=== PATIENT | male | born 1980 | race Caucasian/White ===

== ENCOUNTER 2023-08-22 11:55 | Emergency (ER) | payer OTHER ==
--- NOTE | 2023-08-22 12:19 | ED ---
General Adult HPI - General Stated complaint: ETOH Time Seen by Provider: 08/22/23 12:17 Source: patient, RN notes reviewed Mode of arrival: ambulatory Limitations: no limitations - History of Present Illness Initial comments: 42-year-old male presents emergency Department via EMS from intoxication. Patient is admitted to large amount of alcohol use. Patient states he has no o ther complaints is found laying on the ground. - Related Data Allergies Allergy/AdvReac Type Severity Reaction Status Date / Time No Known Allergies Allergy Verified 08/22/23 12:48 Review of Systems ROS Statement: Those systems with pertinent positive or pertinent negative responses have been documented in the HPI. ROS Other: All systems not noted in ROS Statement are negative. General Exam - General Exam Comments Initial Comments: Visual Physical Exam Vital signs reviewed General: Well-appearing, nontoxic, no acute distress. Head: Normocephalic, atraumatic Eyes: PERRLA, EOMI ENT: Airway patent Chest: Nonlabored breathing Skin: No visual rash, normal skin tone Neuro: Alert and oriented 3 Musculoskeletal: No gross abnormalities Course Vital Signs 08/22/23 12:43 Temperature 98.2 F Pulse Rate 88 Respiratory 20 Rate Blood Pressure 140/98 O2 Sat by Pulse 96 Oximetry Medical Decision Making - Medical Decision Making I completed the quick note portion of this chart signed Rodolfo Puente PA-C Patient left AGAINST MEDICAL ADVICE from the waiting room Disposition Clinical Impression: Alcoholic intoxication Disposition: ADMITTED IP TO THIS HOSP Referrals: Asael Walker MD [Primary Care Provider] - 1-2 days
[2023-08-22 13:10] VITALS: BP 140/98; PULSE 88; RESP 20; TEMP 98.2
== END 2023-08-22 12:53 | disposition other institution (70) ==
LOC: EC 11:55
DX: F10.929 Alcohol use, unspecified with intoxication, unspecified (principal)
CPT/HCPCS: 99285

== ENCOUNTER 2023-12-02 13:57 | Inpatient (IN) | payer OTHER ==
--- NOTE | 2023-12-02 14:18 | ED ---
General Adult HPI - General Source: patient, RN notes reviewed Mode of arrival: ambulatory Limitations: no limitations <Aimee Stuart - Last Filed: 12/02/23 14:17> - History of Present Illness -: hour(s) Severity scale (1-10): 0 Consistency: constant Improves with: none Worsens with: none Treatments Prior to Arrival: none <Ricci Acuña - Last Filed: 12/07/23 20:14> - General Stated complaint: Nausea Time Seen by Provider: 12/02/23 14:17 - History of Present Illness Initial comments: Quick note: 43-year-old male presented to the ER with chief complaint of nausea. Patient states he is detoxing from alcohol. Has a history of seizures with det ox. Last drink was 1 to 2 hours ago. When he drinks heavily he drinks up to half gallon a day. (Aimee Stuart) This patient is 43-year-old man who presents with complaint that he feels he is withdrawing from alcohol. The patient states that he has been drinking daily. Sometimes up to half gallon of hard liquor per day. He states that he has tried to stop for the past few days but he gets very shaky and anxious. He states he has previously had seizures related to stopping alcohol use. Patient states he has had a little bit of vomiting associated. Denies pain. No recent fall or trauma. (Ricci Acuña) - Related Data Home Medications Medication Instructions Recorded Confirmed Atorvastatin [Lipitor] 40 mg PO DIRECTED 12/02/23 12/02/23 DULoxetine HCL [Cymbalta] 60 mg PO DAILY 12/02/23 12/02/23 Mirtazapine 7.5 mg PO HS 12/02/23 12/02/23 lisinopriL [Zestril] 40 mg PO DAILY 12/02/23 12/02/23 Allergies Allergy/AdvReac Type Severity Reaction Status Date / Time No Known Allergies Allergy Verified 12/02/23 16:58 Review of Systems ROS Other: All systems not noted in ROS Statement are negative. <Aimee Stuart - Last Filed: 12/02/23 14:17> ROS Other: All systems not noted in ROS Statement are negative. Constitutional: Denies: fever, chills Eyes: Denies: vision change Respiratory: Denies: cough, dyspnea Cardiovascular: Denies: chest pain, palpitations, edema Gastrointestinal: Reports: nausea, vomiting. Denies: abdominal pain, hematemesis, melena, hematochezia Genitourinary: Denies: dysuria, hematuria Musculoskeletal: Denies: back pain Skin: Denies: rash Neurological: Denies: headache Psychiatric: Reports: anxiety. Denies: suicidal thoughts <IrineoblancaRicci - Last Filed: 12/07/23 20:14> ROS Statement: Those systems with pertinent positive or pertinent negative responses have been documented in the HPI. Past Medical History Past Medical History: No Reported History History of Any Multi-Drug Resistant Organisms: None Reported Additional Past Surgical History / Comment(s): Mastoid. Past Psychological History: No Psychological Hx Reported Smoking Status: Current every day smoker Past Alcohol Use History: Daily, Heavy Past Drug Use History: None Reported <LincolnharikaAimee - Last Filed: 12/02/23 14:17> General Exam <NarcisoAimee - Last Filed: 12/02/23 14:17> General appearance: alert, in no apparent distress Head exam: Present: atraumatic, normocephalic Eye exam: Present: normal appearance. Absent: scleral icterus, conjunctival injection Neck exam: Present: normal inspection Respiratory exam: Present: normal lung sounds bilaterally. Absent: respiratory distress, wheezes, rales, rhonchi, stridor, accessory muscle use Cardiovascular Exam: Present: normal rhythm, tachycardia, normal heart sounds. Absent: systolic murmur, diastolic murmur, rubs, gallop GI/Abdominal exam: Present: soft. Absent: distended, tenderness, guarding, rebound, rigid, mass Extremities exam: Present: normal inspection, normal capillary refill. Absent: pedal edema Back exam: Present: normal inspection. Absent: CVA tenderness (R), CVA tenderness (L) Neurological exam: Present: alert Psychiatric exam: Present: anxious Skin exam: Present: warm, dry, intact, normal color. Absent: rash <ArianneRicci - Last Filed: 12/07/23 20:14> - General Exam Comments Initial Comments: Visual Physical Exam Vital signs reviewed General: Well-appearing, nontoxic, no acute distress. Head: Normocephalic, atraumatic Eyes: PERRLA, EOMI ENT: Airway patent Chest: Nonlabored breathing Skin: No visual rash, normal skin tone Neuro: Alert and oriented 3 Musculoskeletal: No gross abnormalities (Aimee Stuart) Course Vital Signs 12/02/23 12/02/23 12/02/23 14:42 16:45 18:40 Temperature 98.4 F Pulse Rate 120 H 105 H 113 H Respiratory 16 18 18 Rate Blood Pressure 95/58 120/69 122/62 O2 Sat by Pulse 97 98 100 Oximetry 12/02/23 12/02/23 12/02/23 21:27 22:30 23:25 Temperature 102.0 F H 100.2 F H Pulse Rate 122 H 111 H Respiratory 18 18 Rate Blood Pressure 116/78 124/92 O2 Sat by Pulse 95 95 Oximetry 12/03/23 12/03/23 12/03/23 03:11 06:30 06:49 Temperature 98.6 F 100.3 F H Pulse Rate 80 98 Respiratory 18 18 Rate Blood Pressure 115/78 140/90 O2 Sat by Pulse 100 95 Oximetry 12/03/23 12/03/23 12/03/23 07:36 09:17 10:53 Temperature 99.3 F 98.9 F Pulse Rate 101 H 108 H 98 Respiratory 18 18 14 Rate Blood Pressure 139/82 138/93 142/86 O2 Sat by Pulse 96 99 98 Oximetry 12/03/23 12/03/23 12/03/23 11:22 12:08 14:54 Temperature Pulse Rate 105 H 103 H 103 H Respiratory 22 18 18 Rate Blood Pressure 121/73 122/84 138/101 O2 Sat by Pulse 97 96 97 Oximetry 12/03/23 12/03/23 16:00 17:17 Temperature 97.9 F Pulse Rate 98 98 Respiratory 18 18 Rate Blood Pressure 154/101 133/88 O2 Sat by Pulse 98 98 Oximetry Medical Decision Making <Aimee Stuart - Last Filed: 12/02/23 14:17> - Lab Data Result diagrams: 12/06/23 04:13 12/06/23 04:13 <Ricci Acuña - Last Filed: 12/07/23 20:14> - Medical Decision Making I performed the quick note portion of this chart. Electronically signed by Aimee Stuart PA-C (Aimee Stuart) Patient is a 43-year-old man presenting with symptoms of alcohol withdrawal. He has had severe withdrawal in the past. For this reason will be admitted to medically manage Was pt. sent in by a medical professional or institution ([facility], HEAD ESTHETICIAN, urgent care, hospital, or detention...) When possible be specific @ -[No] Did you speak to anyone other than the patient for history (EMS, parent, family, police, friend...)? What history was obtained from this source @ -[No] Did you review nursing and triage notes (agree or disagree)? Why? @ -[I reviewed and agree with nursing and triage notes] Were old charts reviewed (outside hosp., previous admission, EMS record, old EKG, old radiological studies, urgent care reports/EKG's, detention records)? Report findings @ -[No old charts were reviewed] Differential Diagnosis (chest pain, altered mental status, abdominal pain women, abdominal pain men, vaginal bleeding, weakness, fever, dyspnea, syncope, headac he, dizziness, GI bleed, back pain, seizure, CVA, palpatations, mental health, musculoskeletal)? @ -[Differential Mental Health Depression, anxiety, bipolar, psychosis, schizophrenia, borderline personality, situational depression, adjustment disorder, behavioral disorder, brain tumor, malingering, substance abuse, encephalopathy, medication reaction, dementia, hypothyroidism, degenerative neurologic disorder, lupus.... This is not meant to be all-inclusive list EKG interpreted by me (3pts min.). @ -[ X-rays interpreted by me (1pt min.). @ -[None done] CT interpreted by me (1pt min.). @ -[None done] U/S interpreted by me (1pt. min.). @ -[None done] What testing was considered but not performed or refused? (CT, X-rays, U/S, labs)? Why? @ -[None] What meds were considered but not given or refused? Why? @ -[None] Did you discuss the management of the patient with other professionals (professionals i.e. [facility], HEAD ESTHETICIAN, lab, RT, psych nurse, social worker assistant, oxygen tank filler, teacher, executive vice president and chief operating officer, case sealer)? Give summary @ -[Case discussed with admitting physician and treatment recommendations incorporated Was smoking cessation discussed for >3mins.? @ -[No] Was critical care preformed (if so, how long)? @ -[No] Were there social determinants of health that impacted care today? How? (Homelessness, low income, unemployed, alcoholism, drug addiction, transportation, low edu. Level, literacy, decrease access to med. care, prison, rehab)? @ -[No] Was there de-escalation of care discussed even if they declined (Discuss DNR or withdrawal of care, Hospice)? DNR status @ -[No] What co-morbidities impacted this encounter? (DM, HTN, Smoking, COPD, CAD, Cancer, CVA, ARF, Chemo, Hep., AIDS, mental health diagnosis, sleep apnea, morbid obesity)? @ -[None] Was patient admitted / discharged? Hospital course, mention meds given and route, prescriptions, significant lab abnormalities, going to OR and other pertinent info. @ -[hospital course] Undiagnosed new problem with uncertain prognosis? @ -[No] Drug Therapy requiring intensive monitoring for toxicity (Heparin, Nitro, Insuli n, Cardizem)? @ -[No] Were any procedures done? @ -[No] Diagnosis/symptom? @ -[Acute alcohol withdrawal Acute, or Chronic, or Acute on Chronic? @ -[Acute Uncomplicated (without systemic symptoms) or Complicated (systemic symptoms)? @ -[Uncomplicated Side effects of treatment? @ -[No] Exacerbation, Progression, or Severe Exacerbation? @ -[No] Poses a threat to life or bodily function? How? (Chest pain, USA, GA, pneumonia, PE, COPD, DKA, ARF, appy, cholecystitis, CVA, Diverticulitis, Homicidal, Suicidal, threat to staff... and all critical care pts) @ -[Yes there is significant morbidity and mortality associated with the development of DTs, patient will be admitted to prevent onset of DTs (Ricci Acuña) - Lab Data Lab Results 12/02/23 12/02/23 Range/Units 16:45 16:45 WBC 13.3 H (3.8-10.6) k/uL RBC 3.56 L (4.30-5.90) m/uL Hgb 11.4 L (13.0-17.5) gm/dL Hct 33.3 L (39.0-53.0) % MCV 93.6 (80.0-100.0) fL MCH 32.1 (25.0-35.0) pg MCHC 34.3 (31.0-37.0) g/dL RDW 12.7 (11.5-15.5) % Plt Count 262 (150-450) k/uL MPV 8.1 Neutrophils % 89 % Lymphocytes % 5 % Monocytes % 6 % Eosinophils % 0 % Basophils % 0 % Neutrophils # 11.8 H (1.3-7.7) k/uL Lymphocytes # 0.6 L (1.0-4.8) k/uL Monocytes # 0.7 (0-1.0) k/uL Eosinophils # 0.0 (0-0.7) k/uL Basophils # 0.0 (0-0.2) k/uL Sodium 135 L (137-145) mmol/L Potassium 4.7 (3.5-5.1) mmol/L Chloride 107 (98-107) mmol/L Carbon Dioxide 19 L (22-30) mmol/L Anion Gap 9 mmol/L BUN 46 H (9-20) mg/dL Creatinine 2.11 H (0.66-1.25) mg/dL Est GFR (CKD-EPI)AfAm 43 (>60 ml/min/1.73 sqM) Est GFR (CKD-EPI)NonAf 37 (>60 ml/min/1.73 sqM) Glucose 101 H (74-99) mg/dL Calcium 8.5 (8.4-10.2) mg/dL Magnesium 1.4 L (1.6-2.3) mg/dL Total Bilirubin 0.5 (0.2-1.3) mg/dL AST 36 (17-59) U/L ALT 23 (4-49) U/L Alkaline Phosphatase 82 (38-126) U/L Total Protein 6.2 L (6.3-8.2) g/dL Albumin 3.9 (3.5-5.0) g/dL Serum Alcohol 56 mg/dL Disposition <Aimee Stuart - Last Filed: 12/02/23 14:17> Is patient prescribed a controlled substance at d/c from ED?: No <Ricci Acuña - Last Filed: 12/07/23 20:14> Clinical Impression: Alcohol withdrawal syndrome Disposition: ADMITTED IP TO THIS HOSP Condition: Fair
[2023-12-02] MEDS: SODIUM CHLORIDE 0.9% 1,000 ML IV STA (16:48)
[2023-12-02] MEDS: LORazepam 2 MG/ML INJ IV STA ×2 (16:48→20:13)
[2023-12-02] MEDS: THIAMINE 100 MG TAB PO STA (16:50)
[2023-12-02] MEDS: ONDANSETRON 4 MG/2 ML VIAL IVP STA (17:01)
[2023-12-02] MEDS: MAG HYDROX/AL HYDROX/SIMETH 30 ML, HYOSCYAMINE ELIXIR 10 ML, LIDOCAINE VISCOUS 2% 10 ML PO STA ×2 (17:03→20:22)
[2023-12-02 17:22] LABS: ALT 23 U/L (4-49); AST 36 U/L (17-59); African American GFR (CKD) 43 (>60 ml/min/1.73 sqM); Albumin 3.9 g/dL (3.5-5.0); Alcohol 56 mg/dL; Alkaline Phosphatase 82 U/L (38-126); Anion Gap 9 mmol/L; Blood Urea Nitrogen 46 mg/dL (9-20); Calcium 8.5 mg/dL (8.4-10.2); Carbon Dioxide 19 mmol/L (22-30); Chloride 107 mmol/L (98-107); Glucose 101 mg/dL (74-99); Magnesium 1.4 mg/dL (1.6-2.3); Non-African American GFR(CKD) 37 (>60 ml/min/1.73 sqM); Potassium 4.7 mmol/L (3.5-5.1); Sodium 135 mmol/L (137-145); Total Bilirubin 0.5 mg/dL (0.2-1.3); Total Protein 6.2 g/dL (6.3-8.2)
[2023-12-02 17:30] LABS: Basophils % (A) 0 %; Eosinophils % (A) 0 %; HCT 33.3 % (39.0-53.0); HGB 11.4 gm/dL (13.0-17.5); Lymphocytes # (A) 0.6 k/uL (1.0-4.8); Lymphocytes % (A) 5 %; MCH 32.1 pg (25.0-35.0); MCHC 34.3 g/dL (31.0-37.0); MCV 93.6 fL (80.0-100.0); Mean Platelet Volume 8.1; Monocytes # (A) 0.7 k/uL (0-1.0); Monocytes % (A) 6 %; Neutrophils # (A) 11.8 k/uL (1.3-7.7); Neutrophils % (A) 89 %; Platelet Count 262 k/uL (150-450); RBC 3.56 m/uL (4.30-5.90); RDW 12.7 % (11.5-15.5); WBC 13.3 k/uL (3.8-10.6)
[2023-12-02] MEDS: SODIUM CHLORIDE 0.9% 1,000 ML IV ONE (19:00)
[2023-12-02] MEDS: MAGNESIUM SULFATE-D5W PMX 1 GM in DEXTROSE/WATER 1 100ML.BAG IVPB ONE (19:01)
[2023-12-02] MEDS: LORazepam 2 MG/ML INJ IV PRN (19:02)
[2023-12-02] MEDS ORDERED: NALOXONE 0.4 MG/ML 1 ML VIAL IV PRN (20:15)
[2023-12-02] MEDS ORDERED: MAG HYDROX/AL HYDROX/SIMETH 30 ML CUP PO PRN (20:15)
[2023-12-02] MEDS: FAMOTIDINE 20 MG/2 ML VIAL IV STA (20:17)
[2023-12-02] MEDS: SODIUM CHLORIDE 0.9% 1,000 ML IV SCH (20:20)
[2023-12-02] MEDS: FAMOTIDINE 20 MG TAB PO SCH (21:22)
[2023-12-02] MEDS: ACETAMINOPHEN TAB 325 MG TAB PO STA (23:26)
[2023-12-03] MEDS: ONDANSETRON 4 MG/2 ML VIAL IVP PRN (09:38)
[2023-12-03 13:45] LABS: ALT 19 U/L (4-49); AST 31 U/L (17-59); African American GFR (CKD) 53 (>60 ml/min/1.73 sqM); Albumin/Globulin Ratio 1.3; Alkaline Phosphatase 63 U/L (38-126); Anion Gap 4 mmol/L; Blood Urea Nitrogen 35 mg/dL (9-20); Calcium 8.1 mg/dL (8.4-10.2); Carbon Dioxide 21 mmol/L (22-30); Chloride 108 mmol/L (98-107); Globulin 2.3 g/dL; Glucose 126 mg/dL (74-99); Non-African American GFR(CKD) 46 (>60 ml/min/1.73 sqM); Potassium 4.3 mmol/L (3.5-5.1); Sodium 133 mmol/L (137-145); Total Bilirubin 0.3 mg/dL (0.2-1.3); Total Protein 5.3 g/dL (6.3-8.2)
[2023-12-03] MEDS: LORazepam 2 MG/ML INJ IV PRN ×2 (18:12→21:04)
[2023-12-03] MEDS: MIRTAZAPINE 15 MG TAB PO SCH (20:11)
--- NOTE | 2023-12-03 22:48 | HP ---
HISTORY AND PHYSICAL CHIEF COMPLAINT: Acute alcohol intoxication and acute kidney injury. HISTORY OF PRESENT ILLNESS: This is the first known admission of this 43-year-old white male, who came in acutely intoxicated. His BUN was also elevated to 46 and his creatinine 2.11 with a GFR of 37. His magnesium was low too at 1.4. He has been told in the past that he had a "kidney problem." REVIEW OF SYSTEMS: Otherwise unremarkable. He has had no seizures, hematemesis, melena, jaundice, blackouts, etc. Past medical history, family history, personal and social histories are all otherwise unremarkable and noncontributory or unchanged. PHYSICAL EXAMINATION: VITAL SIGNS: Normal. HEAD, EARS, EYES, NOSE, MOUTH, AND THROAT: Normal. CHEST: Clear. CARDIAC: Normal. ABDOMEN: Soft, nontender. EXTREMITIES: Normal. NEUROLOGIC: He is intact. ASSESSMENT: He was admitted to the hospital with diagnoses of: 1. Delirium tremens. 2. Acute kidney injury. 3. Hypomagnesemia. 4. Rule out chronic kidney disease. PLAN: 1. Bed rest. 2. IV fluids. 3. Rehydrate. 4. CIWA protocol. MMODL / IJN: [id number] /
--- NOTE | 2023-12-03 22:57 | PN ---
PROGRESS NOTE CHIEF COMPLAINT: DTs, and renal failure. HISTORY OF PRESENT ILLNESS: This gentleman is doing fairly well. He is still nauseated and still in DTs. PHYSICAL EXAMINATION: VITAL SIGNS: Normal. CHEST: Clear. CARDIAC: Normal. ABDOMEN: Soft, nontender. IMPRESSION: 1. Acute alcohol intoxication. 2. Delirium tremens. 3. Dehydration. 4. Acute kidney injury. PLAN: Continue with IV fluids, CIWA protocol, and repeat laboratory studies. MMODL / PRABHJOTN: [id number] /
[2023-12-03 23:23] LABS: Glucose,Whole Blood 127 mg/dL (70-110)
[2023-12-04] MEDS ORDERED: Magnesium Replacement Protocol 1 EACH MISC MISCELLANE PRN (01:57)
--- NOTE | 2023-12-04 01:58 | P.CNPUL ---
History of Present Illness Consult date: 12/04/23 Requesting physician: Asael Walker Reason for consult: other Chief complaint: Alcohol withdrawal delirium tremens History of present illness: Patient is a 43-year-old white male with past medical history significant for alcoholism, hyperlipidemia, hypertension, and current everyday smoker. Patient presented to the emergency room on 12/02/2023 with acute alcohol intoxication. He was reporting alcohol withdrawal like symptoms. He reportedly drinks 1/2 gallon of liquor per day. Last drink was reportedly 1 to 2 hours before hospital admission. Serum alcohol level was 56 mg/dL. He was admitted originally admitted to the general medical floor with the [facility] protocol. The patient started to acutely withdrawal from alcohol. Reported auditory and visual hallucinations. Patient was restless and agitated. Nurses report that he tried to drink his own urine. He was treated with a total of 12 mg of Ativan, and despite this he was having high CIWA scores. Last reported CIWA sco re was 26. At this point, we were consulted for ICU evaluation. I recommended transfer to the intensive care unit for possible Precedex infusion. Currently, the patient has been moved to room 264. He is now quite calm. He is lethargic. Sonorous. Will wake up and answer questions, but is overall poor historian. Endorses headache. No reported falls or trauma. No reported seizure-like activity. conveyor worker is at bedside. On a 50% Ventimask. No reported aspiration events. No vomiting. No reported hematemesis or GI bleeding. Abdomen is nontender, and does not appear acute. CBC on arrival: WBC count 13.3, hemoglobin 11.4, hematocrit 33.3, platelets 262. Most recent BMP from this m orning: Sodium 133, potassium 4.3, chloride 108, serum bicarb 21, BUN 35, creatinine 1.79, glucose 126. LFTs not elevated. Normal saline infusing at 130 MLS per hour. Sinus tachycardia on bedside monitor. Vital signs are stable. Review of Systems ROS unobtainable: due to mental status Past Medical History Past Medical History: No Reported History History of Any Multi-Drug Resistant Organisms: None Reported Additional Past Surgical History / Comment(s): Mastoid. Past Anesthesia/Blood Transfusion Reactions: No Reported Reaction Past Psychological History: No Psychological Hx Reported Smoking Status: Current every day smoker Past Alcohol Use History: Daily, Heavy Past Drug Use History: None Reported - Past Family History Father Family Medical History: Cancer Medications and Allergies Home Medications Medication Instructions Recorded Confirmed Type Atorvastatin [Lipitor] 40 mg PO DIRECTED 12/02/23 12/02/23 History DULoxetine HCL [Cymbalta] 60 mg PO DAILY 12/02/23 12/02/23 History Mirtazapine 7.5 mg PO HS 12/02/23 12/02/23 History lisinopriL [Zestril] 40 mg PO DAILY 12/02/23 12/02/23 History Allergies Allergy/AdvReac Type Severity Reaction Status Date / Time No Known Allergies Allergy Verified 12/02/23 16:58 Physical Exam Vitals: Vital Signs Temp Pulse Pulse Resp BP BP Pulse Ox 12/04/23 00:50 98 12/03/23 20:00 18 12/03/23 19:24 98.2 F 119 H 18 142/84 96 12/03/23 17:40 98.8 F 124 H 18 114/63 97 12/03/23 17:17 97.9 F 98 18 133/88 98 12/03/23 16:00 98 18 154/101 98 12/03/23 14:54 103 H 18 138/101 97 12/03/23 12:08 103 H 18 122/84 96 12/03/23 11:22 105 H 22 121/73 97 12/03/23 10:53 98 14 142/86 98 12/03/23 09:17 98.9 F 108 H 18 138/93 99 12/03/23 07:36 99.3 F 101 H 18 139/82 96 12/03/23 06:49 98 18 140/90 95 12/03/23 06:30 100.3 F H 12/03/23 03:11 98.6 F 80 18 115/78 100 FiO2 12/04/23 00:50 50 12/03/23 20:00 12/03/23 19:24 12/03/23 17:40 12/03/23 17:17 12/03/23 16:00 12/03/23 14:54 12/03/23 12:08 12/03/23 11:22 12/03/23 10:53 12/03/23 09:17 12/03/23 07:36 12/03/23 06:49 12/03/23 06:30 12/03/23 03:11 Intake and Output 12/03/23 12/03/23 12/04/23 14:59 22:59 06:59 Other: # Voids 0 GENERAL EXAM: Lethargic 43-year-old white male, disheveled, will wake up to verbal stimulation, but quickly falls back asleep.. HEAD: Normocephalic and atraumatic EYES: Normal reaction of pupils, equal size. NOSE: Clear with pink turbinates. THROAT: No erythema or exudates. NECK: No masses, no JVD. CHEST: No chest wall deformity. LUNGS: Equal air entry with no crackles, wheeze, rhonchi or dullness. No conversational dyspnea or accessory muscle use. On a 50% Ventimask CVS: S1 and S2 normal with no audible murmur, regular rhythm. No extra heart sounds ABDOMEN: No hepatosplenomegaly, active bowel sounds, no guarding or rigidity. SPINE: No scoliosis or deformity SKIN: No rashes CENTRAL NERVOUS SYSTEM: No focal deficits, tone is normal in all 4 extremities. EXTREMITIES: There is no peripheral edema, clubbing, or cyanosis. Peripheral pulses are intact. Results - Laboratory Findings CBC and BMP: 12/02/23 16:45 12/03/23 13:12 Abnormal lab findings: Abnormal Labs 12/02/23 12/02/23 12/03/23 16:45 16:45 13:12 WBC 13.3 H RBC 3.56 L Hgb 11.4 L Hct 33.3 L Neutrophils # 11.8 H Lymphocytes # 0.6 L Sodium 135 L 133 L Chloride 108 H Carbon Dioxide 19 L 21 L BUN 46 H 35 H Creatinine 2.11 H 1.79 H Glucose 101 H 126 H POC Glucose (mg/dL) Calcium 8.1 L Magnesium 1.4 L Total Protein 6.2 L 5.3 L Albumin 3.0 L 12/03/23 23:22 WBC RBC Hgb Hct Neutrophils # Lymphocytes # Sodium Chloride Carbon Dioxide BUN Creatinine Glucose POC Glucose (mg/dL) 127 H Calcium Magnesium Total Protein Albumin Assessment and Plan Assessment: Acute alcohol intoxication with impending acute alcohol withdrawal delirium tremens. Patient was intoxicated on arrival with a serum alcohol of 56 mg/dL. He was admitted to the hospital under [facility] protocol. He has received a total of 12 mg of Ativan so far. Despite this was having high CIWA scores and was transferred to the intensive care unit for possible Precedex infusion. Acute hypoxemic respiratory failure, likely secondary to above Severe dehydration Acute injury, likely prerenal and secondary to above Hypomagnesemia, will be replaced History of alcoholism, drinks reportedly 1/2 gallon per day History of hypertension History of hyperlipidemia Current everyday smoker. Plan: Patient was seen and evaluated, transferred to the intensive care unit. Patient had been treated with multiple doses of Ativan while on the general medical floor, despite this was having high CIWA scores. Patient may need Precedex infusion. Continue CIWA protocol Vitamin B1 replacement Continue with IV maintenance fluids. Obtain chest x-ray Seizure precautions Continue safety tech Protonix for GI prophylaxis Heparin for DVT prophylaxis We will continue to follow the patient while in the intensive care unit I have personally seen and examined the patient, performed the documentation and the assessment and plan as written. Number of minutes spent on the visit:20 Time with Patient: Greater than 30
[2023-12-04] MEDS: THIAMINE 100 MG/ML 2 ML VIAL IM STA (02:00)
[2023-12-04 03:50] LABS: African American GFR (CKD) 59 (>60 ml/min/1.73 sqM); Anion Gap 9 mmol/L; Blood Urea Nitrogen 29 mg/dL (9-20); Carbon Dioxide 17 mmol/L (22-30); Chloride 113 mmol/L (98-107); Glucose 98 mg/dL (74-99); Magnesium 1.9 mg/dL (1.6-2.3); Non-African American GFR(CKD) 51 (>60 ml/min/1.73 sqM); Sodium 139 mmol/L (137-145)
[2023-12-04 05:32] LABS: Basophils % (A) 0 %; Eosinophils # (A) 0.1 k/uL (0-0.7); Eosinophils % (A) 1 %; HCT 32.6 % (39.0-53.0); HGB 10.6 gm/dL (13.0-17.5); Lymphocytes # (A) 1.3 k/uL (1.0-4.8); Lymphocytes % (A) 14 %; MCH 31.9 pg (25.0-35.0); MCHC 32.5 g/dL (31.0-37.0); MCV 98.2 fL (80.0-100.0); Mean Platelet Volume 8.2; Monocytes # (A) 0.4 k/uL (0-1.0); Monocytes % (A) 4 %; Neutrophils # (A) 7.5 k/uL (1.3-7.7); Neutrophils % (A) 79 %; Platelet Count 209 k/uL (150-450); RBC 3.32 m/uL (4.30-5.90); RDW 12.7 % (11.5-15.5); WBC 9.5 k/uL (3.8-10.6)
[2023-12-04] MEDS: MAGNESIUM SULFATE-D5W PMX 1 GM in DEXTROSE/WATER 1 100ML.BAG IVPB ONE (05:52)
--- NOTE | 2023-12-04 08:28 | XR ---
EXAMINATION TYPE: XR chest 1V portable DATE OF EXAM: 12/04/2023 1:49 AM CLINICAL INDICATION:Male, 43 years old with history of increased oxygen demands; PH[facility] COMPARISON: None TECHNIQUE: XR chest 1V portable Frontal view of the chest. FINDINGS: Lungs/Pleura: There is no evidence of pleural effusion, focal consolidation, or pneumothorax. Pulmonary vascularity: Unremarkable. Heart/mediastinum: Cardiomediastinal silhouette is unremarkable. Musculoskeletal: No acute osseous pathology. IMPRESSION: No acute cardiopulmonary disease/process.
[2023-12-04] MEDS: HALOPERIDOL LACTATE 5 MG/ML 1 ML VIAL IM STA (09:40)
[2023-12-04] MEDS: HEPARIN SODIUM,PORCINE 5,000 UNIT/ML 1 ML VIAL SQ SCH (09:41)
[2023-12-04] MEDS: PANTOPRAZOLE 40 MG/10 ML VIAL IVP SCH (09:41)
[2023-12-04] MEDS: DULoxetine HCL 60 MG CAPSULE.DR PO SCH (09:41)
[2023-12-04] MEDS: lisinopriL 20 MG TAB PO SCH (09:41)
[2023-12-05 06:25] LABS: Basophils % (A) 1 %; Eosinophils # (A) 0.3 k/uL (0-0.7); Eosinophils % (A) 5 %; HCT 29.6 % (39.0-53.0); HGB 9.7 gm/dL (13.0-17.5); Lymphocytes # (A) 1.4 k/uL (1.0-4.8); Lymphocytes % (A) 23 %; MCHC 32.6 g/dL (31.0-37.0); Mean Platelet Volume 7.8; Monocytes # (A) 0.3 k/uL (0-1.0); Monocytes % (A) 6 %; Neutrophils # (A) 3.7 k/uL (1.3-7.7); Neutrophils % (A) 63 %; Platelet Count 222 k/uL (150-450); RBC 3.02 m/uL (4.30-5.90); RDW 12.3 % (11.5-15.5); WBC 5.9 k/uL (3.8-10.6)
[2023-12-05 06:51] LABS: African American GFR (CKD) 66 (>60 ml/min/1.73 sqM); Anion Gap 4 mmol/L; Blood Urea Nitrogen 29 mg/dL (9-20); Calcium 8.4 mg/dL (8.4-10.2); Carbon Dioxide 22 mmol/L (22-30); Chloride 109 mmol/L (98-107); Glucose 97 mg/dL (74-99); Magnesium 1.7 mg/dL (1.6-2.3); Non-African American GFR(CKD) 57 (>60 ml/min/1.73 sqM); Sodium 135 mmol/L (137-145)
[2023-12-05] MEDS: MAGNESIUM SULFATE-D5W PMX 1 GM in DEXTROSE/WATER 1 100ML.BAG IVPB ONE (07:57)
[2023-12-05] MEDS: THIAMINE 100 MG TAB PO SCH (08:02)
--- NOTE | 2023-12-05 14:36 | P.PN ---
Subjective Progress Note Date: 12/05/23 Principal diagnosis: Acute alcohol withdrawal Patient is a 43-year-old white male with past medical history significant for alcoholism, hyperlipidemia, hypertension, and current everyday smoker. Patient presented to the emergency room on 12/02/2023 with acute alcohol intoxication. He was reporting alcohol withdrawal like symptoms. He reportedly drinks 1/2 gallon of liquor per day. Last drink was reportedly 1 to 2 hours before hospital admission. Serum alcohol level was 56 mg/dL. He was admitted originally admitted to the general medical floor with the CIWA protocol. The patient started to acutely withdrawal from alcohol. Reported auditory and visual hallucinations. Patient was restless and agitated. Nurses report that he tried to drink his own urine. He was treated with a total of 12 mg of Ativan, and despite this he was having high CIWA scores. Last reported CIWA score was 26. At this point, we were consulted for ICU evaluation. I recommended transfer to the intensive care unit for possible Precedex infusion. Currently, the patient has been moved to room 264. He is now quite calm. He is lethargic. Sonorous. Will wake up and answer questions, but is overall poor historian. Endorses headache. No reported falls or trauma. No reported seizu re-like activity. teenage babysitter is at bedside. On a 50% Ventimask. No reported aspiration events. No vomiting. No reported hematemesis or GI bleeding. Abdomen is nontender, and does not appear acute. CBC on arrival: WBC count 13.3, hemoglobin 11.4, hematocrit 33.3, platelets 262. Most recent BMP from this morning: Sodium 133, potassium 4.3, chloride 108, serum bicarb 21, BUN 35, creatinine 1.79, glucose 126. LFTs not elevated. Normal saline infusing at 130 MLS per hour. Sinus tachycardia on bedside monitor. Vital signs are stable. Patient was reevaluated today on 12/05/2023, patient remains in the ICU, seems to be calm today, not in any distress, his alcohol withdrawal is fairly well- controlled. Patient is not requiring much of sedation,WBC is 5.9 hemoglobin 9.7 basic metabolic profile is normal renal profile is improving and creatinine is down to 1.49 from 2.11 on admission chest x-ray that showed no acute cardiopulmonary process for hence I plan to transfer the patient out of the ICU to a regular medical floor Objective - Vital Signs Vital signs: Vital Signs Temp 97.5 F L 12/05/23 08:00 Pulse 67 12/05/23 10:00 Resp 4 L 12/05/23 10:00 BP 140/94 12/05/23 10:00 Pulse Ox 94 L 12/05/23 10:00 FiO2 50 12/04/23 04:00 Intake & Output 12/04/23 12/05/23 12/05/23 18:59 06:59 18:59 Intake Total 520 350 Output Total 2715 007 0294 Balance -915 -450 -1050 Weight 105.2 kg Intake: IV 520 Sodium Chloride 0.9% 1, 520 000 ml @ 130 mls/hr IV . [id number] [facility] Rx#:[id number] Intake, IV Titration 100 Amount Magnesium Sulfate-D5w Pmx 100 1 gm In Dextrose/Water 1 100ml.bag @ 100 mls/hr IVPB ONCE ONE Rx#: [id number] Oral 250 Output: Urine 6440 606 4154 Other: Voiding Method Urinal Urinal Urinal # Voids 1 0 0 - Exam GENERAL EXAM: Revealed 43-year-old white male in no distress, on room air HEAD: Normocephalic and atraumatic EYES: Normal reaction of pupils, equal size. NOSE: Clear with pink turbinates. THROAT: No erythema or exudates. NECK: No masses, no JVD. CHEST: No chest wall deformity. LUNGS: Clear bilaterally no crackles rhonchi or wheezes CVS: S1 and S2 normal with no audible murmur, regular rhythm. No extra heart so unds ABDOMEN: No hepatosplenomegaly, active bowel sounds, no guarding or rigidity. Psychiatric: Normal mood and affect and normal mental status examination SKIN: No rashes CENTRAL NERVOUS SYSTEM: Alert oriented x 3 no gross focal deficit EXTREMITIES: There is no peripheral edema, clubbing, or cyanosis. Peripheral pulses are intact. - Labs CBC & Chem 7: 12/05/23 05:47 12/05/23 05:47 Labs: Abnormal Lab Results - Last 24 Hours (Table) 12/05/23 12/05/23 Range/Units 05:47 05:47 RBC 3.02 L (4.30-5.90) m/uL Hgb 9.7 L (13.0-17.5) gm/dL Hct 29.6 L (39.0-53.0) % Sodium 135 L (137-145) mmol/L Chloride 109 H (98-107) mmol/L BUN 29 H (9-20) mg/dL Creatinine 1.49 H (0.66-1.25) mg/dL Assessment and Plan Assessment: Impression: Acute alcohol intoxication with impending acute alcohol withdrawal delirium tremens. Acute hypoxic respiratory failure secondary to above, resolved Severe dehydration Acute injury, likely prerenal and secondary to above Hypomagnesemia, resolved History of alcoholism, drinks reportedly 1/2 gallon per day History of hypertension History of hyperlipidemia Current everyday smoker. Recommendation: Continue present supportive care measures Continue CIWA protocol Continue GI and DVT prophylaxis Consider transferring the patient out of the ICU to regular medical floor Will continue to follow Time with Patient: Less than 30
[2023-12-05] MEDS: ACETAMINOPHEN TAB 325 MG TAB PO PRN (18:21)
--- NOTE | 2023-12-05 23:12 | PN ---
PROGRESS NOTE DATE OF SERVICE: 12/04/2023 CHIEF COMPLAINT: DTs, acute alcohol intoxication and sedation. HISTORY OF PRESENT ILLNESS: This gentleman was moved to ICU because of his sedation. He became very lethargic. He was in floor with DTs. REVIEW OF SYSTEMS: Unobtainable right now. PHYSICAL EXAMINATION: VITAL SIGNS: Normal. CHEST: Breath sounds are heard bilaterally. CARDIAC: Normal. ABDOMEN: Soft. IMPRESSION: 1. Respiratory depression. 2. Delirium tremens. 3. Acute alcohol intoxication. PLAN: ICU management until he is awake and alert. MMODL / IJN: [id number] /
--- NOTE | 2023-12-05 23:21 | PN ---
PROGRESS NOTE DATE OF SERVICE: 12/05/2023 CHIEF COMPLAINT: DTs. HISTORY OF PRESENT ILLNESS: This gentleman is awake now, but he is still nauseated and somewhat tremulous. PHYSICAL EXAMINATION: VITAL SIGNS: Normal. CHEST: Clear. CARDIAC: Normal. IMPRESSION: Delirium tremens. PLAN: Continue on program and probably home tomorrow. MMODL / IJN: [id number] /
[2023-12-06 09:34] LABS: Basophils # (A) 0.04 X 10*3/uL (0.00-0.10); Basophils % (A) 0.5 %; Eosinophils % (A) 3.9 %; HCT 29.3 % (39.6-50.0); HGB 9.7 g/dL (13.0-17.0); Lymphocytes # (A) 1.93 X 10*3/uL (0.90-5.00); Lymphocytes % (A) 25.3 %; MCH 31.4 pg (27.0-32.0); MCHC 33.1 g/dL (32.0-37.0); MCV 94.8 FL (80.0-97.0); Mean Platelet Volume 10.1 FL (9.5-12.2); Monocytes # (A) 0.73 X 10*3/uL (0.20-1.00); Monocytes % (A) 9.6 %; NRBC Per 100 WBC 0 X 10*3/uL (0.00-0.01); Neutrophils % (A) 60.2 %; Platelet Count 218 X 10*3/uL (140-440); RBC 3.09 X 10*6/uL (4.40-5.60); RDW 12.2 % (11.5-14.5); WBC 7.64 X 10*3/uL (4.50-10.00)
[2023-12-06 10:52] LABS: BUN/Creat Ratio 18.88 Ratio (12.00-20.00); Blood Urea Nitrogen 30.2 mg/dL (9.0-27.0); Calcium 8.3 mg/dL (8.7-10.3); Carbon Dioxide 23.2 mmol/L (21.6-31.8); Chloride 105 mmol/L (96-109); Glucose 101 mg/dL (70-110); Magnesium 1.8 mg/dL (1.5-2.4); Potassium 4.1 mmol/L (3.5-5.5); Sodium 139 mmol/L (135-145)
--- NOTE | 2023-12-06 12:20 | P.PN ---
Subjective Progress Note Date: 12/06/23 Patient is a 43-year-old white male with past medical history significant for alcoholism, hyperlipidemia, hypertension, and current everyday smoker. Patient presented to the emergency room on 12/02/2023 with acute alcohol intoxication. He was reporting alcohol withdrawal like symptoms. He reportedly drinks 1/2 gallon of liquor per day. Last drink was reportedly 1 to 2 hours before hospital admission. Serum alcohol level was 56 mg/dL. He was admitted originally admitted to the general medical floor with the CIWA protocol. The patient started to acutely withdrawal from alcohol. Reported auditory and visual hallucinations. Patient was restless and agitated. Nurses report that he tried to drink his own urine. He was treated with a total of 12 mg of Ativan, and despite this he was having high CIWA scores. Last reported CIWA score was 26. At this point, we were consulted for ICU evaluation. I recommended transfer to the intensive care unit for possible Precedex infusion. Currently, the patient has been moved to room 264. He is now quite calm. He is lethargic. Sonorous. Will wake up and answer questions, but is overall poor historian. Endorses headache. No reported falls or trauma. No reported seizure-like activity. patient sitter is at bedside. On a 50% Ventimask. No re ported aspiration events. No vomiting. No reported hematemesis or GI bleeding. Abdomen is nontender, and does not appear acute. CBC on arrival: WBC count 13.3, hemoglobin 11.4, hematocrit 33.3, platelets 262. Most recent BMP from this morning: Sodium 133, potassium 4.3, chloride 108, serum bicarb 21, BUN 35, creatinine 1.79, glucose 126. LFTs not elevated. Normal saline infusing at 130 MLS per hour. Sinus tachycardia on bedside monitor. Vital signs are stable. Patient was reevaluated today on 12/05/2023, patient remains in the ICU, seems to be calm today, not in any distress, his alcohol withdrawal is fairly well- controlled. Patient is not requiring much of sedation,WBC is 5.9 hemoglobin 9.7 basic metabolic profile is normal renal profile is improving and creatinine is down to 1.49 from 2.11 on admission chest x-ray that showed no acute cardiopulmonary process for hence I plan to transfer the patient out of the ICU to a regular medical floor The patient is seen today December 06, 2023 in follow-up on the regular medical floor. He is awake and alert in no acute distress. He is sitting up in bed. No shortness of breath, cough or congestion. No significant withdrawal sympto ms. He is feeling back to his baseline. He is maintaining good O2 saturation in the 90s on room air. White count 7.6. Hemoglobin 9.7. Platelets 218. Sodium 139. Potassium 4.1. Bicarb 23. BUN 30. Creatinine 1.6. Glucose 101. He remains on the CIWA protocol. Continued on vitamin supplements. Heparin for DVT prophylaxis. Objective - Vital Signs Vital signs: Vital Signs Temp 98 F 12/06/23 07:20 Pulse 73 12/06/23 07:20 Resp 16 12/06/23 07:20 BP 155/94 12/06/23 07:20 Pulse Ox 98 12/06/23 07:20 FiO2 50 12/04/23 04:00 Intake & Output 12/05/23 12/06/23 12/06/23 18:59 06:59 18:59 Intake Total 350 Output Total 1400 Balance -1050 Intake: Intake, IV Titration 100 Amount Magnesium Sulfate-D5w Pmx 100 1 gm In Dextrose/Water 1 100ml.bag @ 100 mls/hr IVPB ONCE ONE Rx#: [id number] Oral 250 Output: Urine 1400 Other: Voiding Method Urinal Toilet Toilet Urinal Urinal # Voids 0 1 - Exam GENERAL EXAM: Alert, calm cooperative 43-year-old male, on room air, comfortable in no apparent distress. HEAD: Normocephalic. EYES: Normal reaction of pupils, equal size. NOSE: Clear with pink turbinates. THROAT: No erythema or exudates. NECK: No masses, no JVD. CHEST: No chest wall deformity. LUNGS: Equal air entry with no crackles, wheeze, rhonchi or dullness. CVS: S1 and S2 normal with no audible murmur, regular rhythm. ABDOMEN: No hepatosplenomegaly, normal bowel sounds, no guarding or rigidity. SPINE: No scoliosis or deformity SKIN: No rashes CENTRAL NERVOUS SYSTEM: No focal deficits, tone is normal in all 4 extremities. EXTREMITIES: There is no peripheral edema. No clubbing, no cyanosis. Peripheral pulses are intact. - Labs CBC & Chem 7: 12/06/23 04:13 12/06/23 04:13 Labs: Abnormal Lab Results - Last 24 Hours (Table) 12/06/23 12/06/23 Range/Units 04:13 04:13 RBC 3.09 L (4.40-5.60) X 10*6/uL Hgb 9.7 L (13.0-17.0) g/dL Hct 29.3 L (39.6-50.0) % BUN 30.2 H (9.0-27.0) mg/dL Creatinine 1.6 H (0.6-1.5) mg/dL Est GFR (CKD-EPI) 54 L (>=60) Calcium 8.3 L (8.7-10.3) mg/dL Assessment and Plan Assessment: Acute alcohol intoxication with impending acute alcohol withdrawal delirium tremens, recovered Acute hypoxic respiratory failure secondary to above, resolved Severe dehydration Acute injury, likely prerenal and secondary to above Hypomagnesemia, resolved History of alcoholism, drinks reportedly 1/2 gallon per day History of hypertension History of hyperlipidemia Current everyday smoker Plan: The patient was seen and evaluated Labs and medications reviewed Stable and on room air Last Ativan required on December 04, 2023 Cleared for discharge from the pulmonary standpoint I have personally seen and examined the patient, performed the documentation and the assessment and plan as written. Number of minutes spent on the visit: 10.
--- NOTE | 2023-12-06 23:57 | PN ---
PROGRESS NOTE DATE OF SERVICE: 12/06/2023 CHIEF COMPLAINT: DTs and acute alcohol intoxication. HISTORY OF PRESENT ILLNESS: This gentleman is doing well. He is stable. He feels like he is largely out of DTs. He feels like he could probably go home, but he is concerned. Tomorrow, he is supposed to be in rehab and he is a little bit worried about going home tonight and falling into the difficulty. PHYSICAL EXAMINATION: VITAL SIGNS: Normal. CHEST: Clear. CARDIAC: Normal. ABDOMEN: Soft, nontender. IMPRESSION: 1. Acute alcohol intoxication. 2. Delirium tremens. 3. Chronic alcoholism. PLAN: Discharge tomorrow to rehab. MMODL / IJN: [id number] /
[2023-12-07 02:13] VITALS: RESP 18
[2023-12-07 07:44] VITALS: BP 136/87; PULSE 66; TEMP 97.6
--- NOTE | 2023-12-09 03:26 | DS ---
DISCHARGE SUMMARY CHIEF COMPLAINT: Acute alcohol intoxication and DTs. HISTORY OF PRESENT ILLNESS AND PHYSICAL EXAMINATION: Details of this man's history and physical can be found in the initial workup. LABORATORY STUDIES: While he was in the hospital, he had laboratory studies, details of which can be found in the laboratory section of his chart. COURSE IN THE HOSPITAL: After admission, he was placed on bedrest, started on intravenous fluids and CIWA protocol. He was intoxicated and went into florid DTs. He stabilized slowly and was doing well and it was felt that he could be discharged on the . He was discharged straight into a rehab program. FINAL DIAGNOSES: 1. Acute alcohol intoxication. 2. Delirium tremens. 3. Acute kidney injury. 4. Chronic alcoholism. OPERATIONS: None. CONSULTATION: None, he is improved. AIDEN / [place]: [id number] /
== END 2023-12-07 10:51 | disposition home or self-care (01) | DRG 775 ==
LOC: EC 13:57 → 5NMEDONC 20:16 → 4SSUR 12-03 16:55 → 2SICU 12-03 23:14 → 5NMEDONC 12-05 14:02
PROVIDERS: ADMIT Family Medicine; ATTEND Family Medicine
PROC: HZ2ZZZZ Detoxification Services for Substance Abuse Treatment (ICD-10-PCS; principal; 2023-12-02)
DX: F10.231 Alcohol dependence with withdrawal delirium (principal); Z71.41 Alcohol abuse counseling and surveillance of alcoholic; N17.9 Acute kidney failure, unspecified; J96.01 Acute respiratory failure with hypoxia; F10.229 Alcohol dependence with intoxication, unspecified; I10 Essential (primary) hypertension; R11.2 Nausea with vomiting, unspecified; E86.0 Dehydration; E83.42 Hypomagnesemia; E78.5 Hyperlipidemia, unspecified; F17.210 Nicotine dependence, cigarettes, uncomplicated; Y90.2 Blood alcohol level of 40-59 mg/100 ml; Z79.899 Other long term (current) drug therapy; R00.0 Tachycardia, unspecified
CPT/HCPCS: 36415; 71045; 80048; 80053; 80320; 83735; 85025; 96361; 96365; 96375; 96376; 99285

== ENCOUNTER 2024-01-28 23:02 | Inpatient (IN) | payer OTHER ==
[2024-01-28] MEDS ORDERED: LORazepam 2 MG/ML INJ IV PRN (23:23)
--- NOTE | 2024-01-28 23:26 | ED ---
Alcohol HPI - General Source: EMS Mode of arrival: EMS Limitations: no limitations <Daily Guillaume - Last Filed: 01/28/24 23:24> <Odin Ware - Last Filed: 01/29/24 04:32> - General Chief Complaint: Alcohol Stated Complaint: ETOH Time Seen by Provider: 01/28/24 23:24 - History of Present Illness Initial Comments: 43-year-old male presenting with chief complaint of nausea vomiting. Patient states that he has a history of binge drinking. He has been drinking over one fifth for about a week. His last drink was earlier today. He admits to nausea and vomiting and states "it feels like I am tingling all over". (Daily Guillaume) Dictation was produced using [employer] dictation software. please excuse any grammatical, word or spelling errors. Chief Complaint: 43-year-old female presents to the emergency department for alcohol withdrawal symptoms History of Present Illness: Patient is a 43-year-old alcoholic male states that he is dependent on alcohol. Drinks about fifth and a half of liquor daily. Patient states that his last drink was earlier this afternoon. Patient wants to quit. States that he started feeling jittery and shaky. Patient reports having had multiple hospital admissions for alcohol withdrawal treatment. Patient denies any abdominal pain. The ROS documented in this emergency department record has been reviewed and confirmed by me. Those systems with pertinent positive or negative responses have been documented in the HPI. All other systems are other negative and/or noncontributory. (Odin Ware) - Related Data Home Medications Medication Instructions Recorded Confirmed Atorvastatin [Lipitor] 40 mg PO DIRECTED 12/02/23 12/02/23 DULoxetine HCL [Cymbalta] 60 mg PO DAILY 12/02/23 12/02/23 Mirtazapine 7.5 mg PO HS 12/02/23 12/02/23 lisinopriL [Zestril] 40 mg PO DAILY 12/02/23 12/02/23 Allergies Allergy/AdvReac Type Severity Reaction Status Date / Time No Known Allergies Allergy Verified 01/28/24 23:18 Review of Systems ROS Other: All systems not noted in ROS Statement are negative. <Daily Guillaume - Last Filed: 01/28/24 23:24> ROS Other: All systems not noted in ROS Statement are negative. <Odin Ware - Last Filed: 01/29/24 04:32> ROS Statement: Those systems with pertinent positive or pertinent negative responses have been documented in the HPI. Past Medical History Past Medical History: Hypertension History of Any Multi-Drug Resistant Organisms: None Reported Additional Past Surgical History / Comment(s): Mastoid. Past Anesthesia/Blood Transfusion Reactions: No Reported Reaction Past Psychological History: No Psychological Hx Reported Smoking Status: Current every day smoker Past Alcohol Use History: Daily, Heavy Past Drug Use History: None Reported - Past Family History Father Family Medical History: Cancer <Daily Guillaume - Last Filed: 01/28/24 23:24> General Exam Limitations: no limitations <Daily Guillaume - Last Filed: 01/28/24 23:24> <Odin Ware - Last Filed: 01/29/24 04:32> - General Exam Comments Initial Comments: Visual Physical Exam Vital signs reviewed General: Well-appearing, nontoxic, no acute distress. Head: Normocephalic, atraumatic Eyes: PERRLA, EOMI ENT: Airway patent Chest: Nonlabored breathing Skin: No visual rash, normal skin tone Neuro: Alert and oriented 3 Musculoskeletal: No gross abnormalities (Daily Guillaume) PHYSICAL EXAM: General Impression: Alert and oriented x3, mildly tremulous HEENT: Normocephalic atraumatic, extra-ocular movements intact, pupils equal and reactive to light bilaterally, mucous membranes moist. Cardiovascular: Heart regular rate and rhythm Chest: Able to complete full sentences, no retractions, no tachypnea Abdomen: abdomen soft, non-tender, non-distended, no organomegaly Musculoskeletal: Pulses present and equal in all extremities, no peripheral edema Motor: no focal deficits noted Neurological: CN II-XII grossly intact, no focal motor or sensory deficits noted Skin: Intact with no visualized rashes Psych: Normal affect and mood (Odin Ware) Course Vital Signs 01/28/24 01/29/24 01/29/24 23:04 00:20 01:17 Temperature 98.2 F Pulse Rate 129 H 100 Respiratory 18 18 19 Rate Blood Pressure 158/99 143/104 138/94 O2 Sat by Pulse 96 96 Oximetry 01/29/24 02:32 Temperature Pulse Rate 94 Respiratory 18 Rate Blood Pressure 141/99 O2 Sat by Pulse 97 Oximetry Medical Decision Making <Daily Guillaume - Last Filed: 01/28/24 23:24> - Lab Data Result diagrams: 01/28/24 23:52 01/28/24 23:52 <JeanieOdin D - Last Filed: 01/29/24 04:32> - Medical Decision Making I performed the quick note portion of this visit, electronically signed Daily Guillaume PA-C (Daily Guillaume) Was pt. sent in by a medical professional or institution (, PA, FLAT KNITTER HELPER, urgent care, hospital, or [facility]...) When possible be specific @ -No Did you speak to anyone other than the patient for history (EMS, parent, family, police, friend...)? What history was obtained from this source @ -No Did you review nursing and triage notes (agree or disagree)? Why? @ -I reviewed and agree with nursing and triage notes Were old charts reviewed (outside hosp., previous admission, EMS record, old EKG, old radiological studies, urgent care reports/EKG's, [facility] records)? Report findings @ -No old charts were reviewed Differential Diagnosis (chest pain, altered mental status, abdominal pain women, abdominal pain men, vaginal bleeding, musculoskeletal, weakness, fever, dyspnea, syncope, headache, dizziness, GI bleed, back pain, seizure, CVA, palpatations, mental health)? @ -Differential Weakness: Hypoglycemia, shock, sepsis, hyponatremia, anemia, infection, NH, ETOH, adverse medicine reaction, overdose, stroke, this is not meant to be an all-inclusive list. EKG interpreted by me (3pts min.). @ -None done X-rays interpreted by me (1pt min.). @ -None done CT interpreted by me (1pt min.). @ -None done U/S interpreted by me (1pt. min.). @ -None done What testing was considered but not performed or refused? (CT, X-rays, U/S, labs)? Why? @ -None What meds were considered but not given or refused? Why? @ -None Did you discuss the management of the patient with other professionals (professionals i.e. , PA, FLAT KNITTER HELPER, lab, RT, psych nurse, social worker masters, wardrobe specialty worker, teacher, police patrol officer, therapeutic case manager)? Give summary @ -Case discussed with hospitalist for admission Was smoking cessation discussed for >3mins.? @ -No Was critical care preformed (if so, how long)? @ -No Were there social determinants of health that impacted care today? How? (Homelessness, low income, unemployed, alcoholism, drug addiction, transportation, low edu. Level, literacy, decrease access to med. care, alf, rehab)? @ -No Was there de-escalation of care discussed even if they declined (Discuss DNR or withdrawal of care, Hospice)? DNR status @ -No What co-morbidities impacted this encounter? (DM, HTN, Smoking, COPD, CAD, Cancer, CVA, ARF, Chemo, Hep., AIDS, mental health diagnosis, sleep apnea, m orbid obesity)? @ -None Was patient admitted / discharged? Hospital course, mention meds given and route, prescriptions, significant lab abnormalities, going to OR and other pertinent info. @ -43-year-old male presents to the emergency department for alcohol withdrawal symptoms. Vital signs upon arrival shows tachycardia f at 129, rest of vital signs within acceptable limits. Patient does have some mild withdrawal symptoms at the bedside. Patient is high risk for EtOH withdrawal. Labs are within acceptable limits. Patient will be admitted for inpatient management of alcohol withdrawal Undiagnosed new problem with uncertain prognosis? @ -No Drug Therapy requiring intensive monitoring for toxicity (Heparin, Nitro, Insulin, Cardizem)? @ -No Were any procedures done? @ -No Diagnosis/symptom? Acute, or Chronic, or Acute on Chronic? Uncomplicated (without systemic symptoms) or Complicated (systemic symptoms)? @ -Alcohol withdrawal Side effects of treatment? @ -No Exacerbation, Progression, or Severe Exacerbation? @ -No Poses a threat to life or bodily function? How? (Chest pain, USA, NH, pneumonia, PE, COPD, DKA, ARF, appy, cholecystitis, CVA, Diverticulitis, Homicidal, Ruff icidal, threat to staff... and all critical care pts) @ -yes (Odin Ware) - Lab Data Lab Results 01/28/24 01/28/24 01/29/24 Range/Units 23:52 23:52 01:06 WBC 10.4 (3.8-10.6) k/uL RBC 4.60 (4.30-5.90) m/uL Hgb 14.3 D (13.0-17.5) gm/dL Hct 41.9 (39.0-53.0) % MCV 91.1 D (80.0-100.0) fL MCH 31.0 (25.0-35.0) pg MCHC 34.1 (31.0-37.0) g/dL RDW 12.6 (11.5-15.5) % Plt Count 375 (150-450) k/uL MPV 8.0 Neutrophils % 75 % Lymphocytes % 17 % Monocytes % 5 % Eosinophils % 0 % Basophils % 1 % Neutrophils # 7.8 H (1.3-7.7) k/uL Lymphocytes # 1.8 (1.0-4.8) k/uL Monocytes # 0.5 (0-1.0) k/uL Eosinophils # 0.0 (0-0.7) k/uL Basophils # 0.1 (0-0.2) k/uL Sodium 134 L (137-145) mmol/L Potassium 5.1 (3.5-5.1) mmol/L Chloride 102 (98-107) mmol/L Carbon Dioxide 22 (22-30) mmol/L Anion Gap 10 mmol/L BUN 55 H (9-20) mg/dL Creatinine 2.26 H (0.66-1.25) mg/dL Est GFR (CKD-EPI)AfAm 40 (>60 ml/min/1.73 sqM) Est GFR (CKD-EPI)NonAf 34 (>60 ml/min/1.73 sqM) Glucose 119 H (74-99) mg/dL Calcium 8.5 (8.4-10.2) mg/dL Total Bilirubin 0.6 (0.2-1.3) mg/dL AST 252 H (17-59) U/L ALT 206 H (4-49) U/L Alkaline Phosphatase 75 (38-126) U/L Total Protein 7.1 (6.3-8.2) g/dL Albumin 4.4 (3.5-5.0) g/dL Amylase 46 (30-110) U/L Lipase 130 (23-300) U/L Serum Alcohol <10 mg/dL Disposition <Daily Guillaume - Last Filed: 01/28/24 23:24> Decision Time: 00:54 <Odin Ware - Last Filed: 01/29/24 04:32> Clinical Impression: Alcohol withdrawal Disposition: ADMITTED IP TO THIS HOSP Condition: Fair Referrals: Asael Walker MD [Primary Care Provider] - 1-2 days
[2024-01-29] MEDS: ONDANSETRON 4 MG/2 ML VIAL IVP STA (00:17)
[2024-01-29] MEDS: SODIUM CHLORIDE 0.9% 1,000 ML IV STA (00:17)
[2024-01-29 00:23] LABS: ALT 206 U/L (4-49); AST 252 U/L (17-59); African American GFR (CKD) 40 (>60 ml/min/1.73 sqM); Albumin 4.4 g/dL (3.5-5.0); Alkaline Phosphatase 75 U/L (38-126); Amylase 46 U/L (30-110); Anion Gap 10 mmol/L; Blood Urea Nitrogen 55 mg/dL (9-20); Calcium 8.5 mg/dL (8.4-10.2); Carbon Dioxide 22 mmol/L (22-30); Chloride 102 mmol/L (98-107); Glucose 119 mg/dL (74-99); Lipase 130 U/L (23-300); Non-African American GFR(CKD) 34 (>60 ml/min/1.73 sqM); Potassium 5.1 mmol/L (3.5-5.1); Sodium 134 mmol/L (137-145); Total Bilirubin 0.6 mg/dL (0.2-1.3); Total Protein 7.1 g/dL (6.3-8.2)
[2024-01-29] MEDS: LORazepam 2 MG/ML INJ IV PRN ×2 (00:25→02:46)
[2024-01-29 00:35] LABS: Basophils # (A) 0.1 k/uL (0-0.2); Basophils % (A) 1 %; Eosinophils % (A) 0 %; HCT 41.9 % (39.0-53.0); Lymphocytes # (A) 1.8 k/uL (1.0-4.8); Lymphocytes % (A) 17 %; MCHC 34.1 g/dL (31.0-37.0); Monocytes # (A) 0.5 k/uL (0-1.0); Monocytes % (A) 5 %; Neutrophils # (A) 7.8 k/uL (1.3-7.7); Neutrophils % (A) 75 %; Platelet Count 375 k/uL (150-450); RDW 12.6 % (11.5-15.5); WBC 10.4 k/uL (3.8-10.6)
[2024-01-29 00:41] LABS: HGB 14.3 gm/dL (13.0-17.5); MCV 91.1 fL (80.0-100.0)
[2024-01-29] MEDS ORDERED: NALOXONE 0.4 MG/ML 1 ML VIAL IV PRN (04:30)
[2024-01-29] MEDS: SODIUM CHLORIDE 0.9% 1,000 ML IV SCH (04:34)
--- NOTE | 2024-01-30 22:40 | HP ---
HISTORY AND PHYSICAL CHIEF COMPLAINT: Acute alcohol intoxication. HISTORY OF PRESENT ILLNESS: This is another admission for this 43-year-old chronic alcoholic. He presented to the emergency room lethargic and going into DTs. REVIEW OF SYSTEMS: He denies any abdominal pain, hematemesis, melena, jaundice, acholic stools, seizures, blackouts, etc. PAST MEDICAL HISTORY, FAMILY HISTORY, AND PERSONAL AND SOCIAL HISTORIES: Are otherwise unremarkable and noncontributory. PHYSICAL EXAMINATION: VITAL SIGNS: Pulse is 100, blood pressure is 145/90. HEENT: Head, ears, eyes, nose, mouth, and throat were normal. There is no icterus. CHEST: Clear. CARDIAC: Normal. ABDOMEN: Soft, nontender. EXTREMITIES: Normal. NEUROLOGIC: He is intact. DIAGNOSES: He is admitted to the hospital with diagnoses: 1. Acute alcohol intoxication. 2. Chronic alcoholism. 3. Delirium tremens. PLAN: 1. Bedrest. 2. IV fluids. 3. Thiamin and CIWA protocol. MMVANNA / PRABHJOTN: [id number] /
--- NOTE | 2024-01-30 23:31 | PN ---
PROGRESS NOTE DATE OF SERVICE: 01/30/2024 CHIEF COMPLAINT: Acute alcohol intoxication with DTs. HISTORY OF PRESENT ILLNESS: This gentleman is doing well. He is still a bit shaky. He is making arrangements to go to rehab, which may even be today or tomorrow. PHYSICAL EXAMINATION: GENERAL : He is somewhat tremulous. VITAL SIGNS are normal. CHEST: Clear. CARDIAC: Exam is normal. IMPRESSION: 1. Acute alcohol intoxication. 2. DTs. 3. Chronic alcoholism. 4. Elevated liver function studies (AST 252 and ALT 206), and renal failure (BUN 55 and creatinine 2.26). PLAN: Release to rehab when he bed is available. MMODL / IJN: [id number] /
[2024-02-01 08:33] VITALS: BP 126/88; PULSE 85; RESP 16; TEMP 97.7
--- NOTE | 2024-02-01 22:43 | PN ---
PROGRESS NOTE DATE OF SERVICE: 01/31/2024 CHIEF COMPLAINT: Acute alcohol intoxication, alcoholism, and DTs. HISTORY OF PRESENT ILLNESS: This gentleman is doing well. He is out of DTs. Apparently, the rehab center will be picking him up tomorrow. PHYSICAL EXAMINATION: CHEST: Clear. CARDIAC: Normal. VITAL SIGNS: Normal and he is out of DTs. IMPRESSION: 1. Acute alcohol intoxication. 2. DTs. 3. Chronic alcoholism. PLAN: Discharge to rehab tomorrow. MMODL / IJN: [id number] /
--- NOTE | 2024-02-02 06:55 | DS ---
DISCHARGE SUMMARY CHIEF COMPLAINT: Acute alcohol intoxication. HISTORY OF PRESENT ILLNESS AND PHYSICAL EXAMINATION: Details of this man's history and physical can be found in the initial workup. LABORATORY STUDIES: While he is in the hospital, he had laboratory studies, details of which can be found in the laboratory section of his chart. COURSE IN HOSPITAL: After admission, he was placed on bedrest, started intravenous fluids, and CIWA protocol. He did go into DTs. He eventually stabilized and was improving. He made arrangements to go straight to a rehab center after discharge and they picked him up on the afternoon on the . FINAL DIAGNOSIS: 1. Acute alcohol intoxication. 2. Chronic alcoholism. 3. DTs. OPERATIONS: None. CONSULTATION: None. He is improved. MMODL / IJN: [id number] /
--- NOTE | 2024-02-04 09:51 | CDI ---
Documentation Clarification Form Date: 02/04/24 From: Ruth Tee Admit Date: 01/29/2024 04:30:00 AM Patient Name: Lucas Palacios Visit Number: [id number] Discharge Date: 02/01/2024 03:10:00 PM ATTENTION: The Clinical Documentation Specialists (CDI) and [facility] Coding Staff appreciate your assistance in clarifying documentation. Please respond to the clarification below the line at the bottom and electronically sign. The CDI & [facility] Coding staff will review the response and follow-up if needed. Please note: Queries are made part of the Legal Health Record. If you have any questions, please contact the author of this message via ITS. Dr. Asael Walker, There is documentation of renal failure in the 01/29 progress note. Additional clarification of the acuity of the condition is requested. History/Risk Factors: Alcohol dependence with intoxication, withdrawals and delirium, vaper Clinical Indicators: Cr 2.26, BUN 55 Treatment: IV fluids Can you please clarify the acuity of the renal failure? [ ] Acute [ ] Chronic, specify stage [ ] Acute on chronic, specify stage [ ] Other, please specify [ ] Unable to determine MTDD
--- NOTE | 2024-03-08 01:34 | MISC ---
MISCELLANOUS REPORT Acute kidney injury. MMODL / IJN: [id number] /
== END 2024-02-01 15:10 | disposition other institution (70) | DRG 775 ==
LOC: EC 23:02 → 5NMEDONC 01-29 04:30
PROVIDERS: ADMIT Family Medicine; ATTEND Family Medicine
DX: F10.221 Alcohol dependence with intoxication delirium (principal); N17.9 Acute kidney failure, unspecified; F10.231 Alcohol dependence with withdrawal delirium; I10 Essential (primary) hypertension; Y90.0 Blood alcohol level of less than 20 mg/100 ml; R94.5 Abnormal results of liver function studies; F17.290 Nicotine dependence, other tobacco product, uncomplicated; Z71.6 Tobacco abuse counseling; Z79.899 Other long term (current) drug therapy
CPT/HCPCS: 36415; 80053; 80320; 82150; 83690; 85025; 96361; 96374; 96375; 96376; 99285

== ENCOUNTER 2024-03-09 16:34 | Emergency (ER) | payer OTHER ==
[2024-03-09 16:42] VITALS: TEMP 98.2
--- NOTE | 2024-03-09 16:55 | ED ---
Recheck HPI - General Chief Complaint: Recheck/Abnormal Lab/Rx Stated Complaint: Hypertension Time Seen by Provider: 03/09/24 16:52 Source: patient, RN notes reviewed Mode of arrival: ambulatory Limitations: no limitations - History of Present Illness Initial Comments: This is a 43-year-old male with a past medical history of of hypertension and alcohol abuse who presents the emergency department chief complaint of hypertension. Patient states that he began experience a mild headache this afternoon where he checked his blood pressure to be elevated in the 180s over 110s. States that he took his prescribed lisinopril hydrochlorothiazide renewed when he had a elevated blood pressure reading. He has not been taking his medication as prescribed over the past 2 weeks. Currently, patient is denies symptoms of chest pain, chest pressure, palpitations, dizziness, changes in vision, dyspnea., Patient states that he drank 3 red bull energy drinks today and the drug kratom. Denies other ilicit drug use, denies recent alcohol use. - Related Data Home Medications Medication Instructions Recorded Confirmed DULoxetine HCL [Cymbalta] 60 mg PO DAILY 12/02/23 01/29/24 Mirtazapine 7.5 mg PO HS 12/02/23 01/29/24 Lisinopril-Hctz 20-12.5 mg 1 tab PO DAILY 01/29/24 01/29/24 [Zestoretic 20-12.5] Pantoprazole [Protonix] 40 mg PO BID PRN 01/29/24 01/29/24 hydrOXYzine pamoate [Vistaril] 25 mg PO TID PRN 01/29/24 01/29/24 Allergies Allergy/AdvReac Type Severity Reaction Status Date / Time No Known Allergies Allergy Verified 03/09/24 16:42 Review of Systems ROS Statement: Those systems with pertinent positive or pertinent negative responses have been documented in the HPI. ROS Other: All systems not noted in ROS Statement are negative. Past Medical History Past Medical History: Hypertension Additional Past Medical History / Comment(s): anemia History of Any Multi-Drug Resistant Organisms: None Reported Additional Past Surgical History / Comment(s): Mastoidectomy Past Anesthesia/Blood Transfusion Reactions: No Reported Reaction Past Psychological History: Anxiety, Depression Smoking Status: Current every day smoker, Vaper Past Alcohol Use History: Daily, Heavy Past Drug Use History: None Reported - Past Family History Father Family Medical History: Cancer General Exam Limitations: no limitations General appearance: alert, in no apparent distress Head exam: Present: atraumatic, normocephalic, normal inspection Eye exam: Present: normal appearance, PERRL, EOMI. Absent: scleral icterus, conjunctival injection, periorbital swelling ENT exam: Present: normal exam, mucous membranes moist Neck exam: Present: normal inspection. Absent: tenderness, meningismus, lymphadenopathy Respiratory exam: Present: normal lung sounds bilaterally. Absent: respiratory distress, wheezes, rales, rhonchi, stridor Cardiovascular Exam: Present: regular rate, normal rhythm, normal heart sounds. Absent: systolic murmur, diastolic murmur, rubs, gallop, clicks GI/Abdominal exam: Present: soft, normal bowel sounds. Absent: distended, tenderness, guarding, rebound, rigid Extremities exam: Present: normal inspection, full ROM, normal capillary refill. Absent: tenderness, pedal edema, joint swelling, calf tenderness Back exam: Present: normal inspection Neurological exam: Present: alert, oriented X3, CN II-XII intact Psychiatric exam: Present: normal affect, normal mood Skin exam: Present: warm, dry, intact, normal color. Absent: rash Course Vital Signs 03/09/24 03/09/24 03/09/24 16:39 18:25 19:02 Temperature 98.2 F Pulse Rate 71 93 80 Pulse Rate [ [employer] ] Respiratory 20 16 16 Rate Blood Pressure 156/100 162/84 144/93 O2 Sat by Pulse 100 99 98 Oximetry 03/09/24 03/09/24 19:04 19:40 Temperature Pulse Rate 68 Pulse Rate [ 80 [employer] ] Respiratory 16 Rate Blood Pressure 144/87 O2 Sat by Pulse 98 Oximetry Medical Decision Making - Medical Decision Making Was pt. sent in by a medical professional or institution (, PA, MUSIC MINISTRIES DIRECTOR, urgent care, hospital, or fpc...) When possible be specific @ -No Did you speak to anyone other than the patient for history (EMS, parent, family, police, friend...)? What history was obtained from this source @ -No Did you review nursing and triage notes (agree or disagree)? Why? @ -I reviewed and agree with nursing and triage notes Were old charts reviewed (outside hosp., previous admission, EMS record, old EKG, old radiological studies, urgent care reports/EKG's, fpc records)? Report findings @ -No old charts were reviewed Differential Diagnosis (chest pain, altered mental status, abdominal pain women, abdominal pain men, vaginal bleeding, weakness, fever, dyspnea, syncope, headache, dizziness, GI bleed, back pain, seizure, CVA, palpatations, mental health, musculoskeletal)? @ -Differential Headache: Migraine, tension, cluster, carbon monoxide, central venous thrombosis, pension karma temporal arteritis, acute closure glaucoma, intercranial hemorrhage, mastoiditis, sinusitis, head injury, this is not meant to be an all-inclusive list. EKG interpreted by me (3pts min.). @ -completed at 1727: sinus rhythm, nuclear rate 75, AR interval 150, QTc 396. No acute signs of ischemia. X-rays interpreted by me (1pt min.). @ -None done CT interpreted by me (1pt min.). @ -None done U/S interpreted by me (1pt. min.). @ -None done What testing was considered but not performed or refused? (CT, X-rays, U/S, labs)? Why? @ -None What meds were considered but not given or refused? Why? @ -None Did you discuss the management of the patient with other professionals (carlota palafox iHunge[employer] [place], PA, MUSIC MINISTRIES DIRECTOR, lab, RT, psych nurse, social work lecturer, tallow refiner, teacher, prison officer, case sealer)? Give summary @ -No Was smoking cessation discussed for >3mins.? @ -No Was critical care preformed (if so, how long)? @ -No Were there social determinants of health that impacted care today? How? (Homelessness, low income, unemployed, alcoholism, drug addiction, transportation, low edu. Level, literacy, decrease access to med. care, prison, rehab)? @ -No Was there de-escalation of care discussed even if they declined (Discuss DNR or withdrawal of care, Hospice)? DNR status @ -No What co-morbidities impacted this encounter? (DM, HTN, Smoking, COPD, CAD, Cancer, CVA, ARF, Chemo, Hep., AIDS, mental health diagnosis, sleep apnea, morbid obesity)? @ -None Was patient admitted / discharged? Hospital course, mention meds given and route, prescriptions, significant lab abnormalities, going to OR and other pertinent info. @ -43-year-old male with headache and elevated blood pressure. On patient's arrival to the emergency department his blood pressure is elevated at 206/100 with a heart rate in the 70s. On examination, patient denies symptoms of chest pain, chest pressure, palpitations, dizziness or lightheadedness. Is endorsing a mild headache. Patient will be treated with an IM dose of hydralazine while pending labs. EKG showing sinus rhythm with no acute signs of ischemia. CBC mild anemia which is chronic as compared to previous labs. CMP reveals a elevated BUN of 37 creatinine 1.91 and GFR of 42, however this appears chronic compared to previous. Troponin not elevated at less than 0.012. Evaluation, patient states that his headache is markedly improved after administration of hydralazine and Motrin. Blood pressure has responded well to medications. Re commend that patient continue to take prescribed lisinopril hydrochlorothiazide and make an appoint with his primary care provider this week for further evaluation. Also, recommend the patient discontinue use of excessive energy drinks as he drank 3 of them this morning. Additionally, patient took illicit drug Kratom with a slew of side effects and recommend that he can discontinue this as well. Strict return parameters discussed with the patient at bedside is verbalized understanding. Case discussed with Dr. Lizarraga Undiagnosed new problem with uncertain prognosis? @ -No Drug Therapy requiring intensive monitoring for toxicity (Heparin, Nitro, Insulin, Cardizem)? @ -No Were any procedures done? @ -No Diagnosis/symptom? @ -hypertension, headache Acute, or Chronic, or Acute on Chronic? @ -acute Uncomplicated (without systemic symptoms) or Complicated (systemic symptoms)? @ -uncomplicated Side effects of treatment? @ -No Exacerbation, Progression, or Severe Exacerbation? @ -No Poses a threat to life or bodily function? How? (Chest pain, USA, SC, pneumonia, PE, COPD, DKA, ARF, appy, cholecystitis, CVA, Diverticulitis, Homicidal, Suicidal, threat to staff... and all critical care pts) @ -No - Lab Data Result diagrams: 03/09/24 17:35 03/09/24 17:35 Lab Results 03/09/24 03/09/24 03/09/24 Range/Units 17:35 17:35 17:35 WBC 6.0 (3.8-10.6) k/uL RBC 3.36 L (4.30-5.90) m/uL Hgb 10.7 L D (13.0-17.5) gm/dL Hct 31.3 L (39.0-53.0) % MCV 93.1 (80.0-100.0) fL MCH 31.7 (25.0-35.0) pg MCHC 34.1 (31.0-37.0) g/dL RDW 12.9 (11.5-15.5) % Plt Count 298 (150-450) k/uL MPV 7.4 Neutrophils % 58 % Lymphocytes % 30 % Monocytes % 5 % Eosinophils % 5 % Basophils % 1 % Neutrophils # 3.5 (1.3-7.7) k/uL Lymphocytes # 1.8 (1.0-4.8) k/uL Monocytes # 0.3 (0-1.0) k/uL Eosinophils # 0.3 (0-0.7) k/uL Basophils # 0.0 (0-0.2) k/uL Sodium 137 (137-145) mmol/L Potassium 4.8 (3.5-5.1) mmol/L Chloride 109 H (98-107) mmol/L Carbon Dioxide 20 L (22-30) mmol/L Anion Gap 8 mmol/L BUN 37 H (9-20) mg/dL Creatinine 1.91 H (0.66-1.25) mg/dL Est GFR (CKD-EPI)AfAm 49 (>60 ml/min/1.73 sqM) Est GFR (CKD-EPI)NonAf 42 (>60 ml/min/1.73 sqM) Glucose 111 H (74-99) mg/dL Calcium 9.1 (8.4-10.2) mg/dL Magnesium 1.7 (1.6-2.3) mg/dL Total Bilirubin 0.3 (0.2-1.3) mg/dL AST 28 (17-59) U/L ALT 16 (4-49) U/L Alkaline Phosphatase 65 (38-126) U/L Troponin I <0.012 (0.000-0.034) ng/mL Total Protein 6.2 L (6.3-8.2) g/dL Albumin 4.0 (3.5-5.0) g/dL Disposition Clinical Impression: Hypertension, Headache Disposition: HOME SELF-CARE Condition: Good Instructions (If sedation given, give patient instructions): Hypertension (ED) Additional Instructions: Return to the emergency department for any new or worsening symptoms. Continue to take prescribed antihypertensive. Recommend follow-up with your primary care provider this week for further evaluation. Is patient prescribed a controlled substance at d/c from ED?: No Referrals: Asael Walker MD [Primary Care Provider] - 1-2 days Time of Disposition: 19:01
[2024-03-09 17:56] LABS: Basophils % (A) 1 %; Eosinophils # (A) 0.3 k/uL (0-0.7); Eosinophils % (A) 5 %; HCT 31.3 % (39.0-53.0); Lymphocytes # (A) 1.8 k/uL (1.0-4.8); Lymphocytes % (A) 30 %; MCH 31.7 pg (25.0-35.0); MCHC 34.1 g/dL (31.0-37.0); MCV 93.1 fL (80.0-100.0); Mean Platelet Volume 7.4; Monocytes # (A) 0.3 k/uL (0-1.0); Monocytes % (A) 5 %; Neutrophils # (A) 3.5 k/uL (1.3-7.7); Neutrophils % (A) 58 %; Platelet Count 298 k/uL (150-450); RBC 3.36 m/uL (4.30-5.90); RDW 12.9 % (11.5-15.5)
[2024-03-09] MEDS: hydrALAZINE HCL 20 MG/ML 1 ML VIAL IM STA (17:59)
[2024-03-09 18:11] LABS: ALT 16 U/L (4-49); AST 28 U/L (17-59); African American GFR (CKD) 49 (>60 ml/min/1.73 sqM); Alkaline Phosphatase 65 U/L (38-126); Anion Gap 8 mmol/L; Blood Urea Nitrogen 37 mg/dL (9-20); Calcium 9.1 mg/dL (8.4-10.2); Carbon Dioxide 20 mmol/L (22-30); Chloride 109 mmol/L (98-107); Glucose 111 mg/dL (74-99); Magnesium 1.7 mg/dL (1.6-2.3); Non-African American GFR(CKD) 42 (>60 ml/min/1.73 sqM); Potassium 4.8 mmol/L (3.5-5.1); Sodium 137 mmol/L (137-145); Total Bilirubin 0.3 mg/dL (0.2-1.3); Total Protein 6.2 g/dL (6.3-8.2)
[2024-03-09] MEDS: IBUPROFEN 800 MG TAB PO STA (18:22)
[2024-03-09 18:26] VITALS: RESP 16
[2024-03-09 18:37] LABS: HGB 10.7 gm/dL (13.0-17.5)
[2024-03-09 19:42] VITALS: BP 144/87; PULSE 68
== END 2024-03-09 19:41 | disposition home or self-care (01) ==
LOC: EC 16:34
DX: I10 Essential (primary) hypertension (principal); F17.290 Nicotine dependence, other tobacco product, uncomplicated; Z79.899 Other long term (current) drug therapy
CPT/HCPCS: 36415; 93005; 80053; 83735; 84484; 85025; 99284; 96372; J0360

== ENCOUNTER → 2024-04-28 | Outpatient (CLI) | payer OTHER ==
--- NOTE | 2024-04-28 16:02 | US ---
EXAMINATION TYPE: US kidneys/renal and bladder DATE OF EXAM: 04/28/2024 COMPARISON: NONE CLINICAL INDICATION: Male, 43 years old with history of R31.9 HEMATURIA,N18.30 CKD STAGE 3; Hematuria , CKD EXAM MEASUREMENTS: Right Kidney: 10.8 x 6.4 x 5.4 cm Left Kidney: 12.0 x 6.1 x 4.7 cm Exam is limited due to gas. Right Kidney: No hydronephrosis or masses seen. Limited visibility of lower pole due to gas. Left Kidney: No hydronephrosis or masses seen. Limited visibility of lower pole due to gas. Bladder: Appears anechoic Bilateral Jets seen: Yes No hydronephrosis, shadowing calculi, or solid renal masses identified. Cortical medullary differenti ation is maintained bilaterally. The urinary bladder appears anechoic with bilateral ureteric jets id entified. IMPRESSION: No hydronephrosis or nephrolithiasis identified.
== END | disposition home or self-care (01) ==
LOC: RADUSWWP 15:25
PROVIDERS: ATTEND Family Medicine
DX: N18.30 Chronic kidney disease, stage 3 unspecified (principal)
CPT/HCPCS: 76770

== ENCOUNTER → 2024-10-01 | Outpatient (CLI) | payer OTHER ==
--- NOTE | 2024-10-09 00:07 | CE ---
CARDIAC ELECTROPHYSIOLOGY REPORT STUDY: A 3-day Holter monitor. The patient's baseline rhythm appeared to be sinus mechanism with an average heart rate of 89 beats per minute and minimum heart rate of 67 beats per minute and maximum heart rate of 155 beats per minute. Ventricular ectopic events noted in less than 1% and also supraventricular ectopy events noted in less than 1%. No significant sinus pause or sinus arrest noted. CONCLUSION: 1. This is a 3-day Holter monitor. 2. The baseline rhythm appeared to be sinus mechanism. 3. No significant arrhythmia noted. MMODL / IJN: [id number] /
== END | disposition home or self-care (01) ==
LOC: RADECHMAIN 07:09
PROVIDERS: ATTEND Family Medicine
DX: R00.2 Palpitations (principal)
CPT/HCPCS: 93225